=== PATIENT | female | born 1980 | race Caucasian/White ===

== ENCOUNTER 2019-11-11 12:15 | Inpatient (IN) | payer OTHER, MEDICAID ==
[~2019-11-11] VITALS: Ht 160 cm; Wt 67.9 kg
[~2019-11-11 12:15] MED LIST: QUET200T PO; RISPC50 IM
[2019-11-11 13:26] VITALS: BP 140/84
[2019-11-11] MEDS ORDERED: HALOPERIDOL 5 MG TABLET PO PRN (16:00)
[2019-11-11] MEDS ORDERED: ZOLPIDEM TARTRATE 10 MG TABLET PO PRN (16:00)
[2019-11-11] MEDS ORDERED: AQUAPHOR OINTMENT 50 GM TUBE TP PRN (16:00)
[2019-11-11 16:01] VITALS: BP_SYST 115; BP_SYST 126; BP_DIAS 68
[2019-11-11] MEDS: QUEtiapine FUMARATE 200 MG TABLET PO SCH (21:34)
[2019-11-12 06:09] VITALS: BP 122/76
[2019-11-12] MEDS ORDERED: ACETAMINOPHEN 325 MG TABLET PO PRN (08:00)
[2019-11-12] MEDS ORDERED: ONDANSETRON HCL 4 MG TABLET PO PRN (08:00)
[2019-11-12] MEDS ORDERED: DOCUSATE SODIUM 100 MG CAPSULE PO PRN (08:00)
[2019-11-12] MEDS ORDERED: MAG HYDROX/AL HYDROX/SIMETH ES 30 ML SUSPENSION UDCUP PO PRN (08:00)
[2019-11-12] MEDS ORDERED: BENZOCAINE/MENTHOL LOZENGE PO PRN (08:00)
[2019-11-12] MEDS ORDERED: PETROLATUM,WHITE 28 GM JELLY TP PRN (08:00)
[2019-11-12] MEDS ORDERED: MAGNESIUM HYDROXIDE SUSPENSION 30 ML UDCUP PO PRN (08:00)
[2019-11-12] MEDS ORDERED: ALBUTEROL SULFATE HFA 90 MCG/PUFF 8 GM INHALER IH PRN (08:00)
[2019-11-12] MEDS ORDERED: OMEPRAZOLE 20 MG CAPSULE PO PRN (08:00)
[2019-11-12] MEDS ORDERED: BACITRACIN 28 GM OINTMENT TP PRN (08:00)
[2019-11-12] MEDS ORDERED: CloNIDine HCL 0.1 MG TABLET PO PRN (08:00)
[2019-11-12] MEDS ORDERED: IBUPROFEN 600 MG TABLET PO PRN (08:00)
[2019-11-12] MEDS ORDERED: LOPERAMIDE HCL 2 MG CAPSULE PO PRN (08:00)
[2019-11-12 08:11] VITALS: BP 127/68
[2019-11-12 16:01] VITALS: BP 120/64
[2019-11-12] MEDS: QUEtiapine FUMARATE 200 MG TABLET PO SCH (20:37)
[2019-11-13 00:26] VITALS: BP 118/72
[2019-11-13 08:28] VITALS: BP 113/66
[2019-11-13] MEDS: LORazepam 2 MG TABLET PO PRN (09:19)
[2019-11-13 16:11] VITALS: BP 120/64
[2019-11-13] MEDS: QUEtiapine FUMARATE 200 MG TABLET PO SCH (20:50)
[2019-11-14 02:35] VITALS: BP 120/70
[2019-11-14 09:27] VITALS: BP 109/70
[2019-11-14] MEDS: LORazepam 2 MG TABLET PO PRN (15:45)
[2019-11-14 16:26] VITALS: BP 110/63
[2019-11-14] MEDS: QUEtiapine FUMARATE 200 MG TABLET PO SCH (20:41)
[2019-11-15 04:14] VITALS: BP 112/65
[2019-11-15 08:22] LABS: BASOPHILS % (AUTO) 0.5 % (0.0-2.0); EOSINOPHILS % (AUTO) 1.2 % (1.0-6.0); HEMATOCRIT 45.1 % (36-46); HEMOGLOBIN 15.3 g/dL (12.0-16.0); LYMPHOCYTES # (AUTO) 2.2 K/uL (1.0-4.8); LYMPHOCYTES % (AUTO) 24.9 % (22.0-44.0); MEAN CORPUSCULAR HEMOGLOBIN 31.3 pg (26.0-34.0); MEAN CORPUSCULAR HGB CONC 33.9 G/dL (31.0-37.0); MEAN CORPUSCULAR VOLUME 92 fL (80-100); MONOCYTES # (AUTO) 0.5 K/uL (0.1-1.0); MONOCYTES % (AUTO) 5.9 % (2.0-9.0); NEUTROPHILS # (AUTO) 5.9 K/uL (1.8-7.7); NEUTROPHILS % (AUTO) 67.5 % (40.0-70.0); PLATELET COUNT (AUTO) 350 K/uL (150-450); RED BLOOD CELL COUNT(AUTO) 4.89 MIL/uL (4.00-5.20); RED CELL DISTRIBUTION WIDTH 13.2 % (11.5-14.5)
[2019-11-15 08:25] VITALS: BP 106/65
[2019-11-15] MEDS: RisperiDONE 3 MG TABLET PO SCH ×2 (08:54→16:37)
[2019-11-15 09:03] LABS: ALANINE AMINOTRANSFERASE 23 U/L (12-78); ALBUMIN 3.6 g/dL (3.4-5.0); ALKALINE PHOSPHATASE 64 U/L (46-116); ANION GAP 9 mmol/L (8-16); ASPARTATE AMINOTRANSFERASE 33 U/L (15-37); BILIRUBIN,TOTAL 0.3 mg/dL (0.1-1.0); CALCIUM, TOTAL 9.1 mg/dL (8.8-10.5); CARBON DIOXIDE 28 mmol/L (22-29); CHLORIDE 101 mmol/L (98-107); CHOL/HDL RATIO 2.7 (3.9-5.7); CHOLESTEROL 185 mg/dL (131-200); CREATININE 0.65 mg/dL (0.60-1.30); FREE T4 (FREE THYROXINE) 0.91 ng/dL (0.76-1.46); GLOMERULAR FILTR. RATE CALC > 60 mL/min (>60); GLUCOSE,RANDOM 95 mg/dL (70-110); HDL CHOLESTEROL 68 mg/dL (40-60); LDL CHOL (CALC.) 100 mg/dL (0-130); POTASSIUM 3.9 mmol/L (3.5-5.1); SODIUM SERUM 138 mmol/L (136-145); THYROID STIMULATING HORMONE 0.59 uIU/mL (0.36-3.74); TOTAL PROTEIN, SERUM 7.2 g/dL (6.4-8.2); TRIGLYCERIDES 86 mg/dL (15-150); UREA NITROGEN, BLOOD 18 mg/dL (7-18)
[2019-11-15 16:19] VITALS: BP 103/62
[2019-11-15] MEDS: LORazepam 2 MG TABLET PO PRN (17:44)
[2019-11-15] MEDS: QUEtiapine FUMARATE 200 MG TABLET PO SCH (20:31)
[2019-11-16 01:03] VITALS: BP 107/63
[2019-11-16 09:26] VITALS: BP 110/72
[2019-11-16] MEDS: RisperiDONE 3 MG TABLET PO SCH ×2 (09:29→16:59)
[2019-11-16 16:11] VITALS: BP 101/74
[2019-11-16] MEDS: LORazepam 2 MG TABLET PO PRN (18:52)
[2019-11-16] MEDS: QUEtiapine FUMARATE 200 MG TABLET PO SCH (20:54)
[2019-11-17 04:38] VITALS: BP 120/94
[2019-11-17 08:37] VITALS: BP 109/68
[2019-11-17] MEDS: QUEtiapine FUMARATE 100 MG TABLET PO SCH ×2 (08:58→16:14)
[2019-11-17] MEDS: RisperiDONE 3 MG TABLET PO SCH ×2 (08:58→16:15)
[2019-11-17 17:29] VITALS: BP 107/63
[2019-11-17] MEDS: QUEtiapine FUMARATE 200 MG TABLET PO SCH (20:18)
[2019-11-18 01:29] VITALS: BP 102/63
[2019-11-18 08:25] VITALS: BP 110/80
[2019-11-18] MEDS: QUEtiapine FUMARATE 100 MG TABLET PO SCH ×2 (09:17→17:44)
[2019-11-18] MEDS: RisperiDONE 3 MG TABLET PO SCH ×2 (09:17→17:44)
[2019-11-18 16:43] VITALS: BP 116/88
[2019-11-18] MEDS: QUEtiapine FUMARATE 200 MG TABLET PO SCH (20:30)
[2019-11-19 07:02] VITALS: BP 97/55
[2019-11-19 08:30] VITALS: BP 107/60
[2019-11-19] MEDS: RisperiDONE 3 MG TABLET PO SCH ×2 (08:56→16:26)
[2019-11-19] MEDS: QUEtiapine FUMARATE 100 MG TABLET PO SCH ×2 (08:56→16:26)
[2019-11-19] MEDS: LORazepam 2 MG TABLET PO PRN (10:04)
[2019-11-19 16:35] VITALS: BP 114/71
[2019-11-19] MEDS: QUEtiapine FUMARATE 200 MG TABLET PO SCH (21:14)
[2019-11-20 01:40] VITALS: BP 107/68
[2019-11-20] MEDS: RisperiDONE 3 MG TABLET PO SCH ×2 (09:26→16:11)
[2019-11-20] MEDS: QUEtiapine FUMARATE 100 MG TABLET PO SCH ×2 (09:26→16:11)
[2019-11-20 09:40] VITALS: BP 120/78
[2019-11-20 16:00] VITALS: BP 105/70
[2019-11-20] MEDS: QUEtiapine FUMARATE 200 MG TABLET PO SCH (20:26)
[2019-11-21 00:41] VITALS: BP 126/77
[2019-11-21] MEDS: QUEtiapine FUMARATE 100 MG TABLET PO SCH ×2 (08:44→16:17)
[2019-11-21] MEDS: RisperiDONE 3 MG TABLET PO SCH ×2 (08:44→16:17)
[2019-11-21 09:53] VITALS: BP 114/70
[2019-11-21 18:28] VITALS: BP 110/60
[2019-11-21] MEDS: QUEtiapine FUMARATE 200 MG TABLET PO SCH (20:17)
[2019-11-22 01:08] VITALS: BP 102/61
[2019-11-22] MEDS: RisperiDONE 3 MG TABLET PO SCH ×2 (09:41→16:09)
[2019-11-22] MEDS: QUEtiapine FUMARATE 100 MG TABLET PO SCH ×2 (09:41→16:09)
[2019-11-22 09:42] VITALS: BP 111/73
[2019-11-22] MEDS: LORazepam 2 MG TABLET PO PRN (12:50)
[2019-11-22 17:59] VITALS: BP 127/74
[2019-11-22] MEDS: QUEtiapine FUMARATE 200 MG TABLET PO SCH (20:20)
[2019-11-23] VITALS: BP 108/71
[2019-11-23 08:48] VITALS: BP 106/74
[2019-11-23] MEDS: QUEtiapine FUMARATE 100 MG TABLET PO SCH ×2 (08:48→17:06)
[2019-11-23] MEDS: RisperiDONE 3 MG TABLET PO SCH ×2 (08:48→17:06)
[2019-11-23] MEDS ORDERED: RisperiDONE MICROSPHERES 50 MG/2 ML SYRINGE IM SCH (09:00)
[2019-11-23 16:11] VITALS: BP 106/68
[2019-11-23] MEDS: QUEtiapine FUMARATE 200 MG TABLET PO SCH (21:15)
[2019-11-24 06:05] VITALS: BP 110/64
[2019-11-24 08:22] VITALS: BP 111/64
[2019-11-24] MEDS: RisperiDONE 3 MG TABLET PO SCH (08:30)
[2019-11-24] MEDS: QUEtiapine FUMARATE 100 MG TABLET PO SCH (08:30)
[2019-11-24] MEDS ORDERED: RISP3TAB44 PO (11:00)
[2019-11-24] MEDS ORDERED: QUET100T PO (11:01)
[2019-11-24] MEDS ORDERED: QUET200T PO (11:03)
[2019-11-25] MEDS ORDERED: RisperiDONE MICROSPHERES 50 MG/2 ML SYRINGE IM SCH (09:00)
== END 2019-11-24 16:40 | disposition home or self-care (01) | DRG 885 ==
LOC: B2X 15:44 → B2S 11-13 10:46
PROVIDERS: ADMIT Psychiatry & Neurology Psychiatry; ATTEND Psychiatry & Neurology Psychiatry
DX: F20.0 Paranoid schizophrenia (principal); F41.9 Anxiety disorder, unspecified; G47.00 Insomnia, unspecified; F12.90 Cannabis use, unspecified, uncomplicated; F10.10 Alcohol abuse, uncomplicated
CPT/HCPCS: 84439; 84443; J2794